=== PATIENT | female | born 1965 | race Caucasian/White ===

== ENCOUNTER 2019-10-28 08:45 | Inpatient (IN) | payer OTHER ==
[~2019-10-28] VITALS: Ht 160 cm; Wt 85.3 kg
[~2019-10-28 08:45] MED LIST: ALDACTONE25 MG PO; CELEBREX 200 M200 MG PO; CLONAZEPAM PO; DEPAKOTE 250MG250 MG PO; DEPAKOTE250 MG PO; FUROSEMIDE 40 M40 MG PO; HCTZ PO; LEVOTHROID100 MCG PO; PAROXETINE HCL30 MG PO; SINGULAIR 10 MG10 MG PO; VITAMIN B-12500 MCG PO
[2019-10-28 08:46] VITALS: BP 96/60
[2019-10-28 09:31] LABS: HEMATOCRIT 37.5 % (37.0-47.0); HEMOGLOBIN 12.1 gm/dL (12.0-15.0); MCH 31.1 pg (26.0-34.0); MCHC 32.1 g/dL (28.0-37.0); MCV 96.9 fL (80.0-100.0); RBC 3.87 mil/uL (4.20-5.00); RDW 14.7 % (10.5-14.5); WBC 19.8 thou/uL (4.0-11.0)
[2019-10-28 09:38] LABS: CALCIUM 8.4 mg/dL (8.5-10.1); CREATININE 0.9 mg/dL (0.6-1.0)
[2019-10-28 09:39] LABS: POTASSIUM 4.3 mmol/L (3.5-5.1)
[2019-10-28 09:45] LABS: ALBUMIN 2.8 g/dL (3.4-5.0); TOTAL BILIRUBIN 0.3 mg/dL (<0.1-1.0); TOTAL PROTEIN 7.3 g/dL (6.4-8.2)
[2019-10-28] MEDS ORDERED: MIRTAZAPINE15 M2 PO (09:50)
[2019-10-28] MEDS ORDERED: OMEPRAZOLE 20 M20 M1 PO (09:50)
[2019-10-28] MEDS ORDERED: VITAMIN D21250 MC1 PO (09:51)
[2019-10-28] MEDS ORDERED: MYSOLINE50 MG PO (09:52)
[2019-10-28] MEDS ORDERED: SINEMET 10-1001 EAC1 PO (09:52)
[2019-10-28] MEDS ORDERED: COLACE100 MG PO (09:52)
[2019-10-28] MEDS ORDERED: ISOSORBIDE MONO30 M1 PO (09:53)
[2019-10-28] MEDS ORDERED: ZANAFLEX4 M2 PO (09:53)
[2019-10-28] MEDS ORDERED: CYMBALTA60 MG PO (09:53)
[2019-10-28] MEDS ORDERED: DEPAKOTE ER500 M1 PO (09:54)
[2019-10-28] MEDS ORDERED: FOLIC ACID1 MG PO (09:54)
[2019-10-28] MEDS ORDERED: TOPAMAX100 MG PO (09:54)
[2019-10-28] MEDS ORDERED: METFORMIN HCL500 MG PO (09:55)
[2019-10-28] MEDS ORDERED: SYNTHROID125 MC1 PO (09:55)
[2019-10-28] MEDS ORDERED: DIVALPROEX SOD250 M3 PO (09:56)
[2019-10-28 10:11] LABS: ABSOLUTE NEUTROPHILS 12.5 thou/uL (1.4-8.2); ANISOCYTOSIS 1+; PLATELET COUNT 267 thou/uL (150-400)
[2019-10-28 11:39] LABS: URINE BILIRUBIN NEGATIVE (Negative); URINE BLOOD TRACE (Negative); URINE CLARITY CLEAR; URINE COLOR YELLOW; URINE GLUCOSE-RANDOM* NEGATIVE (Negative); URINE KETONES NEGATIVE (Negative); URINE LEUKOCYTES-REFLEX NEGATIVE (Negative); URINE NITRITE-REFLEX NEGATIVE (Negative); URINE PROTEIN (DIPSTICK) NEGATIVE (Negative); URINE UROBILINOGEN 0.2 E.U./dl (0.2-1.0)
[2019-10-28 13:06] VITALS: BP 93/51
--- NOTE | 2019-10-28 15:42 | NUR ---
PT ORIENTED TO ROOM 17 ER HOLD. BED LOW AND LOCKED, SIDE RAILS UPX3, CALL LIGHT IN REACH. DR MENDOZA ORDER CARVALHO CATHETER AND PAIN MEDICATION. PT DENIES SOA AT THIS TIME. WILL CONTINUE TO ASSESS.
[2019-10-28 16:46] LABS: TSH 0.509 uIU/mL (0.358-3.740)
--- NOTE | 2019-10-28 16:59 | NUR ---
REPORT CALLED TO ZEN QUIÑONES.
[2019-10-28 17:22] VITALS: BP 87/68
[2019-10-28 20:20] VITALS: BP 80/43
--- NOTE | 2019-10-28 20:54 | NUR ---
PT OBSERVED STANDING AT THE NURSES STATION DURING REPORT.AM NURSE REDIRECTED HER TO HER ROOM BUT PT REF.PER REPORT,PT HAS BEEN UP ON HER FEET WITHOUT ASSISTANCE SINCE SHE CAME IN ON THE FLOOR,PT ADAMANTLY REFUSED TO BE COMPLIANT WITH FALL PRECAUTIONS,ALL PREACUTIONS ARE IN PLACE.PT STATED THAT SHE WANTS TO GO HOME BUT LATER CHANGED HER MIND TO STAY.THIS NURSE HAS EDUCATED PT ON THE IMPORTANCE OF HER CALLING FOR HELP BEFORE GETTING OUT OF BED BUT PT STATED "I WILL GET UP WHENEVER I WANT TO".RECONSIGNMENT CLERK NOTIFIED ON THIS.WILL CONT TOP MONITOR.
[2019-10-28 21:30] VITALS: BP 95/55
[2019-10-29 03:45] VITALS: BP 87/58
[2019-10-29 08:27] VITALS: BP 100/68
[2019-10-29 10:19] LABS: HEMATOCRIT 37.1 % (37.0-47.0); HEMOGLOBIN 11.8 gm/dL (12.0-15.0); MCH 31.1 pg (26.0-34.0); MCHC 31.7 g/dL (28.0-37.0); RBC 3.79 mil/uL (4.20-5.00); RDW 14.5 % (10.5-14.5)
[2019-10-29 10:37] LABS: CALCIUM 8.4 mg/dL (8.5-10.1); MAGNESIUM 2.1 mg/dL (1.8-2.4); POTASSIUM 3.7 mmol/L (3.5-5.1)
--- NOTE | 2019-10-29 11:47 | NUR ---
PATIENT SIGNED AMA PAPERWORK STATES NOT GOING TO REHAB. WANTS PRN PAIN MED EARLY. WANTS TO TAKE WITH HER EDUCATED ABOUT AMS AND GIVING PAIN MEDS EARLY. VOLUTEER HERE TO TAKE PATIENT TO SECURITY SHE WILL BE GIVEN CAB VOUCHER TO GET HOME.
--- NOTE | 2019-10-29 13:49 | NUR ---
PT ADMITTED RELATED TO TIN FIB FX. CM REVIEWED CHART AND SPOKE WITH CARE TEAM. CM MET WITH PT AT BEDSIDE THIS DAY. PT IS A&O X4. CM ROLE INTRODUCED. PT INDICATED SHE LIVES IN A DUPLEX ALONE WITH NO STEPS TO ENTER AND NO STEPS INSIDE. PT INDICATED SHE HAS A FWW FOR USE AT HOME. PT INDICATED SHE HAS MEDICAID HCBS THROUGH [facility] 3.5HRS PER DAY 5 DAYS A WEEK. CM SPOKE WITH PT ABOUT GOING TO AN ACUTE REHAB FACILITY [facility] OR [facility]. PT INDICATED SHE DIDN'T WANT TO GO TO REHAB. CM INDICATED THAT PT IS TO BE NWB ON LLE AND THAT THEY WOULD TEACH PT HOW TO MAINTAIN THAT AND BE INDEPDENENT AT POSSIBLE SO PT COULD SAFTELY RETURN HOME. PT INDICATED SHE WASN'T GOING TO ANY FACILITY. CM INDICATED THAT PT WOULDN'T BE ABLE TO GET ANY THERAPY OTHERWISE. PT INDICATED SHE WAS THINKING OF LEAVING AMA. CM INDICATED THAT IF PT LEFT AMA THAT WE WOULDN'T BE ABLE TO ASSIST WITH MEDS OR ANY RECOMENEDED EQUIPTMENT UPON HER LEAVING, PT EXPRESSED UNDERSTANDING. CM NOTIFIED PHYSICIAN. PT ULTIMATLY LEFT FACILITY AMA. NO OTHER CM NEEDS INDICATED. CASE CLOSED.
== END 2019-10-29 12:00 | disposition left against medical advice (07) | DRG 563 ==
LOC: ER 08:45 → EROBS 13:35 → 4S 17:00
PROVIDERS: Emergency Medicine; ADMIT Internal Medicine
DX: S82.142A Displaced bicondylar fracture of left tibia, initial encounter for closed fracture (principal); E78.5 Hyperlipidemia, unspecified; I10 Essential (primary) hypertension; I25.10 Atherosclerotic heart disease of native coronary artery without angina pectoris; F32.9 Major depressive disorder, single episode, unspecified; W00.2XXA Other fall from one level to another due to ice and snow, initial encounter; G40.909 Epilepsy, unspecified, not intractable, without status epilepticus; G20 Parkinson's disease; Z53.29 Procedure and treatment not carried out because of patient's decision for other reasons; I95.9 Hypotension, unspecified; I25.2 Old myocardial infarction; Z86.73 Personal history of transient ischemic attack (TIA), and cerebral infarction without residual deficits; Z91.81 History of falling; Z79.899 Other long term (current) drug therapy; Z79.84 Long term (current) use of oral hypoglycemic drugs; Z88.6 Allergy status to analgesic agent; Z88.2 Allergy status to sulfonamides; Z88.8 Allergy status to other drugs, medicaments and biological substances; Y93.89 Activity, other specified; Y92.89 Other specified places as the place of occurrence of the external cause; Y99.8 Other external cause status; Z88.1 Allergy status to other antibiotic agents
CPT/HCPCS: 10195